=== PATIENT | female | born 1950 | race Caucasian/White ===

== ENCOUNTER → 2023-06-28 11:04 | Outpatient (CLI) | payer MEDICARE, SELFPAY ==
--- NOTE | 2023-06-28 | DI.MG.S_ITS ---
BILATERAL DIGITAL SCREENING MAMMOGRAM 3D/2D WITH CAD: 06/28/2023 CLINICAL: Routine screening. Comparison is made to exams dated: 04/26/2020 mammogram, 05/23/2018 mammogram, and 10/10/2016 mammogram - outside location. Both breasts are almost entirely fatty (category a/<25% glandular tissue). Current study was also evaluated with a Computer Aided Detection (CAD) system. No significant masses, calcifications, or other findings are seen in either breast. There has been no significant interval change. IMPRESSION: NEGATIVE There is no mammographic evidence of malignancy. A 1 year screening mammogram is recommended. Based on the Tyrer Cuzick model (a risk assessment model) the patient's lifetime risk is 2.2% and her 10 year risk is 1.5%. According to the ACR, ACS, and NCCN guidelines, an annual breast MRI exam along with mammogram is recommended if the patient's lifetime risk is 20% or greater. This exam was interpreted at Station ID: [id number]. NOTE: For mammograms, a report in lay terms will be sent to the patient. Approximately 15% of breast malignancies will not be visualized mammographically. In the management of a palpable breast mass, a negative mammogram must not discourage biopsy of a clinically suspicious lesion. Electronically Signed By: Lorraine briseno/ryan:06/28/2023 17:13:30 letter sent: Normal Exam ACR BI-RADS Category 1: Negative [id number]
--- NOTE | 2023-06-28 11:38 | DI.DEXA.S_ITS ---
Bone Density Report Name: PIYUSH FLOWERS Age: 73 Sex: Female Ethnicity: White Date of : 1950 Indication: postmenopausal; screening for osteoporosis; Referring Provider: JEMAL SANTOS Study: Bone densitometry was performed. Exam Date: June 28, 2023 Accession number: [id number] Bone Density: Region BMD T-score Z-score Classification AP Spine(L1-L4) 0.858 -1.7 0.5 Osteopenia Femoral Neck (Left) 0.728 -1.1 0.8 Osteopenia Total Hip (Left) 0.895 -0.4 1.2 Normal Femoral Neck (Right) 0.655 -1.7 0.1 Osteopenia Total Hip (Right) 0.853 -0.7 0.8 Normal Total Hip Mean 0.874 -0.6 1.0 Normal World Health Organization criteria for BMD impression classify patients as: Normal (T-score at or above -1.0), Osteopenia (T-score between -1.0 and -2.5), or Osteoporosis (T-score at or below -2.5). 10-year Fracture Risk(1): Major Osteoporotic Fracture 11% Hip Fracture 1.9% Reported Risk Factors: [place] (), Neck BMD=0.655, BMI=25.1 (1) FRAX(R) Version 3.08. Fracture probability calculated for an untreated patient. Fracture probability may be lower if the patient has received treatment. Impression: The patient has low bone mass, based on the Total Spine T-score. The patient has an estimated ten-year risk of hip fracture of 1.9% and an estimated ten-year risk of major fracture of 11%, based on the WHO FRAX algorithm. Discussion: BONE DENSITY IS LOW AT ONE OR MORE SKELETAL SITES. This patient's lowest T-score is low at one or more skeletal sites. It meets the World Health Organization's (WHO) criteria for ?low bone mass? (T-score between -1.0 and -2.5). The patient's 10-year risk of fracture as calculated by FRAX is less than the threshold where pharmacological therapy is recommended by the National Osteoporosis Foundation (NOF). However, all treatment decisions require clinical judgment and consideration of individual patient factors, including patient preferences, comorbidities, previous drug use, risk factors not captured in the FRAX model (e.g., frailty, falls, vitamin D deficiency, increased bone turnover, interval significant decline in bone density) and possible under or overestimation of fracture risk by FRAX. The patient should follow a healthful lifestyle (good nutrition with adequate calcium and vitamin D, and appropriate weight-bearing exercise). Follow-Up: Consider repeating this study in 2 to 3 years to reassess this patient's status, or sooner if there is some new clinical indication. Reported by: KAMILAH ROMERO M.D. on 06/28/2023 11:46:00 AM.
== END ==
PROVIDERS: PCP Student in an Organized Health Care Education/Training Program; Referring Provider Student in an Organized Health Care Education/Training Program; Visit Provider Student in an Organized Health Care Education/Training Program
DX: Z12.31 Encounter for screening mammogram for malignant neoplasm of breast (principal); M85.88 Other specified disorders of bone density and structure, other site; Z13.820 Encounter for screening for osteoporosis; Z78.0 Asymptomatic menopausal state; E03.9 Hypothyroidism, unspecified
CPT/HCPCS: 77063; 77067; 77080

== ENCOUNTER 2023-08-10 08:10 | Day surgery (SDC) | payer MEDICARE, SELFPAY ==
--- NOTE | 2023-08-10 | PATH_ITS ---
[facility] Accession Number: [id number] No. of containers..01 Tissue . 01 Material submitted: . colon - ASCENDING . 01 Diagnosis: Ascending Colon, Polyp: Serrated lesion, favor sessile serrated adenoma. Additional levels were examined. MRV 08/15/2023 1511 Local . 01 Electronically signed: . Lima Degroot MD, Pathologist NPI- [id number] . 01 Gross description: . ASCENDING : Received in formalin is 1 fragment(s) of montoya, soft tissue measuring 0.5 x 0.2 x 0.2 cm submitted entirely in 1 cassette(s) /LORIE 08/14/2023 1915 Local . 01 Pathologist provided ICD-10: D12.2 . 01 CPT . 588150 Specimen Comment: A courtesy copy of this report has been sent to [facility] Pathology Performed at: 01 [facility] [address] [place] [address], [place], [place] [id number] MD Vamsi Morales MD Phone: [phone]
[2023-08-10 08:32] VITALS: BP 149/80; PULSE 62; RESP 16; TEMP 36.9; O2SAT 100; BMI 25.0
[2023-08-10] MEDS: LACTATED RINGERS 1,000 ML 150 ML IV (08:48)
--- NOTE | 2023-08-10 09:25 | PM.HP.1 ---
History of Present Illness History of Present Illness Date Patient Seen: 08/10/23 Time Patient Seen: 09:25 Chief complaint: SDC Narrative: History of colon polyps with last scope done 3 years ago in [facility]. No current symptoms, no family history for colon cancer [facility] Social History household members: spouse Smoking Status: Never smoker alcohol intake: never Comment: Colon polyp 8 mm adenoma found in 2019 Meds Home Medications and Allergies Home Medications Medication Instructions Recorded Confirmed Type sodium,potassium,mag sulfates 17.5 See Rx Instructions PO .COMPLEX 06/20/23 08/10/23 Rx gram-3.13 gram-1.6 gram oral soln #354 mL (Suprep Bowel Prep Kit) levothyroxine 100 mcg tablet 100 mcg PO DAILY 08/10/23 08/10/23 History Allergies Allergy/AdvReac Type Severity Reaction Status Date / Time No Known Drug Allergies Allergy Verified 08/10/23 08:49 Review of Systems Review of Systems ROS: Yes All systems reviewed with the patient and are negative except as otherwise documented Exam Vital Signs (past 8 hours): - 08/10/23 08:32 Temperature 98.4 F Pulse Rate 62 Respiratory Rate 16 Blood Pressure 149/80 H Pulse Oximetry 100 Oxygen Delivery Method Room Air Oxygen Delivery Method Room Air Const General: cooperative and healthy appearing Nutritional Appearance: average body habitus HENMT Head: normocephalic and atraumatic Eyes General: appearance normal, both eyes and all related structures Sclera: sclerae normal Neck Neck: trachea midline Chest Chest: normal inspection of the chest Resp Effort & Inspection: normal respiratory effort and able to speak in complete sentences Cardio Rate: regular rate Rhythm: regular rhythm GI Palpation: soft Skin General: turgor normal Neuro General: patient alert, patient awake and patient oriented x3 Cognition: normal cognition Psych Appearance: grossly normal Judgment: judgment good Assessment & Plan Assessment & Plan narrative: History of colon polyp Plan: Colonoscopy with anesthesia Time Spent With Patient Time with patient: less than 30 minutes
--- NOTE | 2023-08-10 09:57 | PM.OP.COLON ---
Operative Date/Time/Diagnoses Date of procedure: 08/10/23 Time of procedure: 09:57 Pre-op diagnosis: Colon cancer screening with history of colon polyps Post-op diagnosis: same Procedure & Clinicians Study performed: Colonoscopy with cold forceps biopsy under anesthesia Same procedure as scheduled: Yes Indications: History of colon polyps Surgeon: Radha Ace Procedure Notes Procedure in detail: Preop diagnosis: History of colon polyps Postop diagnosis: Same Operative procedure: Colonoscopy with cold forceps biopsy under anesthesia Surgeon: Neisha Ace MD Findings: Tortuous colon. Ascending colon had an area of mucosa suspicious for serrated adenoma and cold biopsy forceps were used for sampling Procedure: Patient placed in lateral position. Rectal exam performed showing normal tone no masses. Colonoscope inserted into the rectum and advanced to ileocecal valve with minimal difficulty. Insufflation extraction of the scope including retroflex and the above findings. Impression: Suspicious area of mucosa in the ascending colon measuring 5 mm greatest diameter. Biopsies taken Plan: Repeat colonoscopy in 5 years regardless of the pathology. Findings: other findings (Mucosal abnormality of ascending colon) Specimen(s): other (Mucosal abnormality of ascending colon) Complications: none Post-procedure Recommendations: Colonoscopy in 5 years Follow up: as needed Disposition: PACU
[2023-08-10 10:00] VITALS: BP 147/78; PULSE 65; RESP 9; TEMP 36.2; O2SAT 96
[2023-08-10 10:04] VITALS: PULSE 63; RESP 15; O2SAT 98
[2023-08-10 10:05] VITALS: BP 143/75; PULSE 56; RESP 15; O2SAT 98
[2023-08-10 10:10] VITALS: BP 133/73; PULSE 58; RESP 18; O2SAT 99
[2023-08-10 10:20] VITALS: BP 148/82; PULSE 62; RESP 22; TEMP 36.2; O2SAT 97
== END 2023-08-10 10:27 | disposition home or self-care (01) ==
PROVIDERS: PCP Student in an Organized Health Care Education/Training Program; Referring Provider Surgery; Visit Provider Anesthesiology
PROC: 0DJD8ZZ Inspection of Lower Intestinal Tract, Via Natural or Artificial Opening Endoscopic (ICD-10-PCS; CPT 45378; principal; 2023-08-10 09:15)
DX: Z12.11 Encounter for screening for malignant neoplasm of colon (principal); Z86.010 Personal history of colon polyps; D12.2 Benign neoplasm of ascending colon
CPT/HCPCS: 45380; J2250; J3010

== ENCOUNTER → 2024-10-15 11:12 | Outpatient (CLI) | payer MEDICARE, SELFPAY ==
--- NOTE | 2024-10-15 11:13 | DI.MG.S_ITS ---
BILATERAL DIGITAL SCREENING MAMMOGRAM 3D/2D WITH CAD: 10/15/2024 CLINICAL: Routine screening. Comparison is made to exams dated: 06/28/2023 mammogram - [facility], 04/26/2020 mammogram, and 05/23/2018 mammogram - outside location. There are scattered areas of fibroglandular density (category b / 25%-50% glandular tissue). Current study was also evaluated with a Computer Aided Detection (CAD) system. No significant masses, calcifications, or other findings are seen in either breast. There has been no significant interval change. IMPRESSION: NEGATIVE There is no mammographic evidence of malignancy. A 1 year screening mammogram is recommended. Based on the Tyrer Cuzick model (a risk assessment model) the patient's lifetime risk is 3.2% and her 10 year risk is 2.4%. According to the ACR, ACS, and NCCN guidelines, an annual breast MRI exam along with mammogram is recommended if the patient's lifetime risk is 20% or greater. This exam was interpreted at Station ID: [id number]. NOTE: For mammograms, a report in lay terms will be sent to the patient. Approximately 15% of breast malignancies will not be visualized mammographically. In the management of a palpable breast mass, a negative mammogram must not discourage biopsy of a clinically suspicious lesion. Electronically Signed By: Shira fink/ryan:10/15/2024 13:07:20 letter sent: Normal Exam ACR BI-RADS Category 1: Negative
== END ==
PROVIDERS: PCP Student in an Organized Health Care Education/Training Program; Referring Provider Student in an Organized Health Care Education/Training Program; Visit Provider Student in an Organized Health Care Education/Training Program
DX: Z12.31 Encounter for screening mammogram for malignant neoplasm of breast (principal)
CPT/HCPCS: 77063; 77067

== ENCOUNTER → 2025-10-27 12:05 | Outpatient (CLI) | payer MEDICARE, SELFPAY ==
--- NOTE | 2025-10-27 12:07 | DI.RAD.S_ITS ---
PROCEDURE: XR DEXA AXIAL SKELETON INDICATIONS: Screening COMPARISON: [facility], CR, XR DEXA AXIAL SKELETON, 06/28/2023, 11:38. FINDINGS: Lumbar Spine: Bone mineral density 0.900 g/cm2, T score -1.3, osteopenia, change from previous 4.8%, previous T-score was -1.7. Left Femoral Neck: Bone mineral density 0.695 g/cm2, T score -1.4, osteopenia, change from previous-4.6% (prior T-score-1.1).. Left Hip: Bone mineral density 0.903 g/cm2, T score -0.3, normal, change from previous 0.9%. Fracture Risk Calculation (when applicable): 10-year fracture risk of a major osteoporotic fracture 11 percent and of a hip fracture 1.8 percent. (T score greater or equal to -1.0 to: NORMAL) (T score from -1.1 to -2.4: OSTEOPENIA) (T score less than or equal to -2.5: OSTEOPOROSIS) IMPRESSION: Osteopenia elevates the patient's 10 year fracture risk as described. A slight increase in 10 year fracture risk compared to prior (9.4% and 1.1% previously). Follow-up guidelines as follows: Osteoporosis: Consider a repeat DEXA and Vertebral Fracture Assessment (VFA) exam in 2 years or sooner if medically necessary, to reassess this patient's status. Osteopenia: Consider a repeat DEXA in 2-3 years to reassess this patient's status, or if there is a new clinical indication. Normal: Consider a repeat DEXA in 5 years or sooner, or if there is a new clinical indication. All treatment decisions require clinical judgment and consideration of individual patient factors, including patient preferences, comorbidities, previous drug use, risk factors not captured in the FRAX model (e.g., frailty, falls, vitamin D deficiency, increased bone turnover, interval significant decline in bone density ) and possible under- or over-estimation of fracture risk by FRAX. In addition, the NOF Guide recommends that FDA-approved medical therapies be considered in postmenopausal women and men age >= 50 years with a: * Hip or vertebral (clinical or morphometric) fracture * T-score of <=-2.5 at the spine or hip * Ten-year fracture probability by FRAX of >= 3% for hip fracture or >=20% for major osteoporotic fracture. Dictated by: Esmer Sparrow M.D. on 10/27/2025 at 22:07 Approved by: Esmer Sparrow M.D. on 10/27/2025 at 22:09
== END ==
PROVIDERS: PCP Student in an Organized Health Care Education/Training Program; Referring Provider Student in an Organized Health Care Education/Training Program; Visit Provider Student in an Organized Health Care Education/Training Program
DX: M85.89 Other specified disorders of bone density and structure, multiple sites (principal); N95.9 Unspecified menopausal and perimenopausal disorder
CPT/HCPCS: 77080

== ENCOUNTER → 2025-10-27 12:08 | Outpatient (CLI) | payer MEDICARE, SELFPAY ==
--- NOTE | 2025-10-27 12:08 | DI.MG.S_ITS ---
MM screening mammo BI: 10/27/2025. BI-RADS: 1 CLINICAL: 75-year old female for bilateral screening mammogram. Tyrer-Cuzick lifetime risk of 2.4%. No personal or first-degree family history of breast cancer. PRIOR EXAMS 10/15/2024, 06/28/2023. MAMMOGRAPHY TECHNIQUE: 2D and 3D (tomosynthesis) digital mammographic views obtained, with additional images as needed for full coverage. Current study was also evaluated with a Computer Aided Detection (CAD) system. DENSITY B. There are scattered areas of fibroglandular density. MAMMOGRAPHY FINDINGS Bilateral: No suspicious mass, asymmetry, microcalcification, or other abnormality seen. IMPRESSION: * No evidence of malignancy. RECOMMENDATIONS Bilateral * Annual screening mammography. OVERALL ASSESSMENT CATEGORY BI-RADS-1: Negative. The [employer] recommends annual screening mammography beginning at age 40 for women with average risk of breast cancer. ELECTRONICALLY SIGNED: Bakari Chester M.D. on 10/30/2025 at 12:36:16 PM PT Interpreting Station ID: [id number]
== END ==
LOC: MAMMO 12:08
PROVIDERS: PCP Student in an Organized Health Care Education/Training Program; Referring Provider Student in an Organized Health Care Education/Training Program; Visit Provider Student in an Organized Health Care Education/Training Program
DX: Z12.31 Encounter for screening mammogram for malignant neoplasm of breast (principal)
CPT/HCPCS: 77063; 77067

== ENCOUNTER → 2025-11-02 12:29 | Outpatient (CLI) | payer MEDICARE, SELFPAY ==
--- NOTE | 2025-11-02 12:30 | DI.ECHO.S_ITS ---
[place] [facility]+ [facility] : : [address] : : [place] : : [id number] : : Phone: [phone] Echocardiogram Report + + :Name: PIYUSH FLOWERS Study Date: 11/02/2025 Height: 66 in : :[facility] ReadingLocation: Weight: 165 lb : : Gender: Female BSA: 1.8 m2 : :: 1950 Age: 75 yrs BP: 145/79 mmHg: :Reason For Study: ATRIAL FIBRILLATION : :Ordering Physician: TOM, : :JEMAL Performed By: Christopher Gerardo : :Referring: JEMAL SANTOS : + + Interpretation Summary The ejection fraction is estimated to be 55-60%. Normal diastolic function. The right ventricle is normal in size and function. The right ventricular systolic pressure is estimated to be at least 36 mmHg based on an estimated right atrial pressure of 8 mm Hg. There is severe biatrial enlargement. There is mild to moderate mitral regurgitation. There is mild aortic regurgitation. Procedure: A two-dimensional transthoracic echocardiogram with color flow and Doppler was performed. The study quality was technically adequate. There is no prior echocardiogram noted for this patient. The patient was in normal sinus rhythm during the exam. Left Ventricle: The left ventricle is normal in size. There is normal left ventricular wall thickness. There is no ventricular septal defect visualized. The ejection fraction is estimated to be 55-60%. There are no focal wall motion abnormalities. Normal diastolic function. Right Ventricle: The right ventricle is normal in size and function. Atria: The left atrium is severely dilated. There is severe biatrial enlargement. The right atrium is severely dilated. There is no Doppler evidence for an interatrial shunt. Mitral Valve: The mitral valve leaflets are mildly calcified. There is mild to moderate mitral regurgitation. Aortic Valve: The aortic valve is trileaflet. The aortic valve opens well. There is no aortic valve stenosis. There is mild aortic regurgitation. Tricuspid Valve: The tricuspid valve leaflets are thin and pliable. There is mild tricuspid regurgitation. The right ventricular systolic pressure is estimated to be at least 36 mmHg based on an estimated right atrial pressure of 8 mm Hg. Pulmonic Valve: The pulmonic valve is not well seen, but is grossly normal. There is mild pulmonic regurgitation. Great Vessels: The aortic root is normal size. The dimensions of the ascending aorta are normal. The pulmonary artery is normal size. The IVC is dilated (diameter is greater than 2.1 cm) yet it collapses greater than 50% with a sniff. This suggests a right atrial pressure of 8 mm Hg. Pericardium/ Pleura There is no pericardial effusion. There is no pleural effusion. MMode/2D Measurements & Calculations LVIDd: 5.9 cm LVOT diam: 2.1 cm LVIDs: 3.7 cm Ao root diam: 3.6 cm FS: 36.7 % asc Aorta Diam: 3.3 cm EPSS: 0.68 cm Ao Arch Diam (Prox Trans): 2.0 cm IVSd: 0.88 cm LVPWd: 0.72 cm LV chen. diameter/BSA (cm/m^2): 3.2 LV sys. diameter/BSA (cm/m^2): 2.0 LA A2 area: 23.9 cm2 RA long axis: 6.3 cm LA A4 area: 25.5 cm2 RA area: 24.8 cm2 LA length (vol): 6.4 cm RA vol: 82.6 ml LA vol: 81.6 ml RA : 44.8 ml/m2 LA vol index: 44.3 ml/m2 IVC diam: 2.5 cm RVD1 (basal): 3.6 cm RVD2 (mid): 2.7 cm TAPSE: 2.1 cm Doppler Measurements & Calculations Ao V2 max: 123.6 cm/sec LVOT Max Sterling: 126.1 cm/sec Ao V2 mean: 83.6 cm/sec LV V1 max P.4 mmHg Ao max P.1 mmHg LV V1 VTI: 29.1 cm Ao mean P.1 mmHg IVÁN(I,D): 3.6 cm2 Ao V2 VTI: 28.0 cm IVÁN(V,D): 3.5 cm2 sev ratio: 1.0 IVÁN indexed to BSA (cm^2/m^2): 1.9 MV E max sterling: 53.5 cm/sec TR max sterling: 266.5 cm/sec MV A max sterling: 53.2 cm/sec TR max P.4 mmHg MV E/A: 1.0 PA V2 max: 90.7 cm/sec Med Peak E' Sterling: 7.0 cm/sec PA V2 mean: 62.6 cm/sec E/E' med: 7.7 PA mean P.7 mmHg Lat Peak E' Sterling: 10.9 cm/sec PA pr(Accel): 44.7 mmHg E/E' lat: 4.9 E/e' average: 6.3 MV dec time: 0.16 sec SVLVOT): 99.6 ml Reading Physician:05:48 PM
== END ==
LOC: ECHO 12:29
PROVIDERS: PCP Student in an Organized Health Care Education/Training Program; Referring Provider Student in an Organized Health Care Education/Training Program; Visit Provider Student in an Organized Health Care Education/Training Program
DX: I48.0 Paroxysmal atrial fibrillation (principal); I08.3 Combined rheumatic disorders of mitral, aortic and tricuspid valves
CPT/HCPCS: 93306